=== PATIENT | female | born 1950 | race Caucasian/White ===

== ENCOUNTER 2019-02-27 19:35 | Emergency (ER) | payer OTHER, MEDICARE | END 2019-02-27 20:35 | disposition home or self-care (01) | LOC: JERFT 19:35 ==

== ENCOUNTER 2022-10-28 14:22 | Emergency (ER) | payer OTHER ==
[2022-10-28 14:39] VITALS: BP 138/93; PULSE 80; RESP 16; TEMP 98.7; BMI 28.8
[2022-10-28] MEDS ORDERED: KETOROLAC TROMETHAMINE 15 MG/ML VIAL IM ONE (15:10)
[2022-10-28] MEDS ORDERED: LIDOCAINE 5% TOPICAL PATCH TP ONE (15:10)
[2022-10-28] MEDS ORDERED: LIDOCAINE 5% TOPICAL PATCH ONE (15:21)
[2022-10-28] MEDS ORDERED: KETOROLAC TROMETHAMINE 15 MG/ML VIAL ONE (15:21)
[2022-10-28] MEDS ORDERED: LIDOCAINE PATCH REMOVAL MC SCH (22:00)
== END 2022-10-28 17:27 | disposition home or self-care (01) ==
LOC: FER 14:22
PROC: 3E0233Z Introduction of Anti-inflammatory into Muscle, Percutaneous Approach (ICD-10-PCS; principal; 2022-10-28)
DX: M25.60 Stiffness of unspecified joint, not elsewhere classified (principal); M62.838 Other muscle spasm
CPT/HCPCS: 96372; 99284-25

== ENCOUNTER → 2022-10-28 | Day surgery (SDC) | payer OTHER | END | disposition home or self-care (01) | LOC: FMAMMOTONE 12:44 | PROVIDERS: ATTEND Nurse Practitioner Family | PROC: 0HBU3ZX Excision of Left Breast, Percutaneous Approach, Diagnostic (ICD-10-PCS; principal; 2022-10-28) | DX: N60.12 Diffuse cystic mastopathy of left breast (principal); R92.0 Mammographic microcalcification found on diagnostic imaging of breast | CPT/HCPCS: 19081; 76098-TC-FY; 87899; 88305-TC; A4648 ==